=== PATIENT | male | born 1995 | race Caucasian/White ===

== ENCOUNTER 2024-01-02 10:06 | Emergency (ER) | payer OTHER ==
[2024-01-02] MEDS ORDERED: cefTRIAXone (ROCEPHIN) 500 MG VIAL ONE (10:35)
[2024-01-02 10:47] LABS: Bilirubin Negative (Negative); Blood, Urine Negative (Negative); Clarity Clear (Clear); Glucose, Urine (Dipstick) Negative (Negative); Ketone, Urine Negative (Negative); Leukocyte Negative (Negative); Nitrite Negative (Negative); Protein, Urine (Dipstick) Negative (Neg-Trace); Urobilinogen 0.2 mg/dL (Less than 2); pH, Urine 5.5 (5.0-9.0)
[2024-01-02 10:50] LABS: Specific Gravity, Urine 1.018 (1.002-1.036)
[2024-01-02 10:52] LABS: Bacteria/HPF Rare-Few HPF (None Seen); CAUTI Indications for Culture Dysuria,urgency,freq; RBC/HPF 0-3 HPF (0-3); Squamous Epithelial 0-3 HPF (0-3); WBC/HPF None Seen HPF (0-3)
[2024-01-02 10:53] LABS: Urine Culture Reflex No No
== END 2024-01-02 11:07 ==
LOC: EEVIPCON 10:06 → MADERS 10:06
DX: R30.0 Dysuria (principal); F17.210 Nicotine dependence, cigarettes, uncomplicated; Z55.6 Problems related to health literacy
CPT/HCPCS: 81001; 96372; 99283; J0696